=== PATIENT | male | born 1980 | race Caucasian/White ===

== ENCOUNTER 2017-02-23 14:57 | Emergency (ER) | payer OTHER, MEDICAID ==
[~2017-02-23] VITALS: Ht 182.9 cm; Wt 128.0 kg
[~2017-02-23 14:57] MED LIST: AMOX875T PO; DICY10 PO; METO10TA PO; NEXI20CA PO; PHEN12.5 PR; PROM25SU8 PO; SUCR1TAB PO
[2017-02-23 15:18] VITALS: BP 164/100; PULSE 92; RESP 17; TEMP 97.8; O2SAT 97
--- NOTE | 2017-02-23 15:22 | PD ---
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 He states he ate lunch and then went to the restroom. When he came out of the restroom he became dizzy and passed out. He did not strike his head. He was awake and alert when [facility] arrived. He denies any focal deficits or weakness. No nausea or vomiting. No chest pain or tightness. No recent illnesses, fever, or chills. He has no other symptoms to report. PFSH Past Medical History Arthritis: Yes Asthma: No Blood Disorders: No Heart Rhythm Problems: No Cancer: No Cardiac Catheterization: No Cardiovascular Problems: Yes High Cholesterol: No Chest Pain: Yes Congestive Heart Failure: No COPD: No Cerebrovascular Accident: Yes (COCAINE INDUCED - HAS SOME RESIDUAL TWITCHING AT TIMES) Diabetes: No Diminished Hearing: No Endocrine: No Gastrointestinal Disorders: Yes GERD: Yes Genitourinary: No Headaches: No Hepatitis: No Hiatal Hernia: No Hypertension: No Immune Disorder: No Musculoskeletal: Yes Neurologic: Yes Psychiatric: Yes (panic attacks) Reproductive: No Respiratory: No Migraines: No Myocardial Infarction: No Seizures: No Sleep Apnea: No Ulcer: No Past Surgical History Abdominal Surgery: No AICD: No Appendectomy: No Arteriovenous Shunt: No Cardiac Surgery: No Cholecystectomy: No Coronary Artery Bypass Graft: No Ear Surgery: No Endocrine Surgery: No Eye Surgery: No Genitourinary Surgery: No Gynecologic Surgery: No Insulin Pump: No Joint Replacement: No Oral Surgery: No Pacemaker: No Thoracic Surgery: No Other Surgery: Yes (CYST REMOVED FROM L-SIDE OF FACE) Social History Alcohol Use: Yes (2-6 DRINKS DAILY) Tobacco Use: No (quit) Substance Use: No (just prescribed) Allergies-Medications (Allergen,Severity, Reaction): Coded Allergies: Cipro (Verified Allergy, Intermediate, hives, 02/23/17) Reported Meds & Prescriptions Reported Meds & Active Scripts Active Reported Protonix (Pantoprazole Sodium) 40 Mg Tab 40 Mg PO DAILY Zantac (Ranitidine HCl) 300 Mg Tab 300 Mg PO BID Review of Systems Except as stated in HPI: all other systems reviewed are Neg Physical Exam Narrative GENERAL: Well nourished male patient, in no acute distress. SKIN: Warm and dry. HEAD: Atraumatic. Normocephalic. EYES: Pupils equal and round. No scleral icterus. No injection or drainage. ENT: No nasal bleeding or discharge. Mucous membranes pink and moist. NECK: Trachea midline. No JVD. CARDIOVASCULAR: Regular rate and rhythm. RESPIRATORY: No accessory muscle use. Clear to auscultation. Breath sounds equal bilaterally. GASTROINTESTINAL: Abdomen soft, nondistended. Right upper quadrant tenderness to palpation.. Hepatic and splenic margins not palpable. MUSCULOSKELETAL: Extremities without clubbing, cyanosis, or edema. No obvious deformities. NEUROLOGICAL: Awake and alert. No obvious cranial nerve deficits. Motor grossly within normal limits. Five out of 5 muscle strength in the arms and legs. Normal speech. Data Data Last Documented VS Vital Signs Date Time Temp Pulse Resp B/P Pulse Ox O2 Delivery O2 Flow Rate FiO2 02/23/17 18:57 85 18 142/85 100 02/23/17 16:30 Room Air 02/23/17 15:18 97.8 Orders Electrocardiogram (02/23/17 15:25) Basic Metabolic Panel (Bmp) (02/23/17 15:25) Complete Blood Count With Diff (02/23/17 15:25) Urinalysis - C+S If Indicated (02/23/17 15:25) Chest, Single Ap (02/23/17 15:25) Ecg Monitoring (02/23/17 15:25) Iv Access Insert/Monitor (02/23/17 15:25) Oximetry (02/23/17 15:25) Sodium Chloride 0.9% Flush (Ns Flush) (02/23/17 15:30) Sodium Chlor 0.9% 1000 Ml Inj (Ns 1000 M (02/23/17 15:25) Orthostatic Vital Signs (02/23/17 17:19) Us Abdomen Gallbladder (02/23/17 ) Lipase (02/23/17 17:19) Labs Laboratory Tests Test 02/23/17 02/23/17 13:15 15:30 Urine Color YELLOW Urine Turbidity CLEAR Urine pH 5.0 Urine Specific [place] 1.022 Urine Protein NEG mg/dL Urine Glucose (UA) NEG mg/dL Urine Ketones TRACE mg/dL Urine Occult Blood NEG Urine Nitrite NEG Urine Bilirubin NEG Urine Urobilinogen LESS THAN 2.0 MG/DL Urine Leukocyte Esterase NEG Urine RBC 1 /hpf Urine WBC 1 /hpf Urine Uric Acid Crystals OCC /hpf Urine Hyaline Casts 1 /lpf Urine Mucus FEW /lpf Microscopic Urinalysis Comment CULT NOT INDICATED White Blood Count 9.8 TH/MM3 Red Blood Count 5.06 MIL/MM3 Hemoglobin 15.3 GM/DL Hematocrit 44.7 % Mean Corpuscular Volume 88.4 FL Mean Corpuscular Hemoglobin 30.3 PG Mean Corpuscular Hemoglobin 34.3 % Concent Red Cell Distribution Width 12.9 % Platelet Count 193 TH/MM3 Mean Platelet Volume 10.3 FL Neutrophils (%) (Auto) 70.9 % Lymphocytes (%) (Auto) 21.3 % Monocytes (%) (Auto) 4.6 % Eosinophils (%) (Auto) 2.1 % Basophils (%) (Auto) 1.1 % Neutrophils # (Auto) 7.0 TH/MM3 Lymphocytes # (Auto) 2.1 TH/MM3 Monocytes # (Auto) 0.5 TH/MM3 Eosinophils # (Auto) 0.2 TH/MM3 Basophils # (Auto) 0.1 TH/MM3 CBC Comment DIFF FINAL Differential Comment Sodium Level 143 MEQ/L Potassium Level 3.5 MEQ/L Chloride Level 109 MEQ/L Carbon Dioxide Level 23.2 MEQ/L Anion Gap 11 MEQ/L Blood Urea Nitrogen 16 MG/DL Creatinine 1.07 MG/DL Estimat Glomerular Filtration 78 ML/MIN Rate Random Glucose 102 MG/DL Calcium Level 9.2 MG/DL Lipase 146 U/L [facility] Medical Decision Making Medical Screen Exam Complete: Yes Emergency Medical Condition: Yes Medical Record Reviewed: Yes Differential Diagnosis syncope versus near syncope versus electrolyte abnormality versus dehydration versus heat exhaustion versus orthostatic hypotension Narrative Course 36 year old male presents to the ED for evaluation of syncopal episode. Pt is AX0 x3 with no focal deficits or weakness. Vital signs are stable. Laboratory Tests Test 02/23/17 02/23/17 13:15 15:30 Urine Color YELLOW Urine Turbidity CLEAR Urine pH 5.0 Urine Specific [place] 1.022 Urine Protein NEG mg/dL Urine Glucose (UA) NEG mg/dL Urine Ketones TRACE mg/dL Urine Occult Blood NEG Urine Nitrite NEG Urine Bilirubin NEG Urine Urobilinogen LESS THAN 2.0 MG/DL Urine Leukocyte Esterase NEG Urine RBC 1 /hpf Urine WBC 1 /hpf Urine Uric Acid Crystals OCC /hpf Urine Hyaline Casts 1 /lpf Urine Mucus FEW /lpf Microscopic Urinalysis Comment CULT NOT INDICATED White Blood Count 9.8 TH/MM3 Red Blood Count 5.06 MIL/MM3 Hemoglobin 15.3 GM/DL Hematocrit 44.7 % Mean Corpuscular Volume 88.4 FL Mean Corpuscular Hemoglobin 30.3 PG Mean Corpuscular Hemoglobin 34.3 % Concent Red Cell Distribution Width 12.9 % Platelet Count 193 TH/MM3 Mean Platelet Volume 10.3 FL Neutrophils (%) (Auto) 70.9 % Lymphocytes (%) (Auto) 21.3 % Monocytes (%) (Auto) 4.6 % Eosinophils (%) (Auto) 2.1 % Basophils (%) (Auto) 1.1 % Neutrophils # (Auto) 7.0 TH/MM3 Lymphocytes # (Auto) 2.1 TH/MM3 Monocytes # (Auto) 0.5 TH/MM3 Eosinophils # (Auto) 0.2 TH/MM3 Basophils # (Auto) 0.1 TH/MM3 CBC Comment DIFF FINAL Differential Comment Sodium Level 143 MEQ/L Potassium Level 3.5 MEQ/L Chloride Level 109 MEQ/L Carbon Dioxide Level 23.2 MEQ/L Anion Gap 11 MEQ/L Blood Urea Nitrogen 16 MG/DL Creatinine 1.07 MG/DL Estimat Glomerular Filtration 78 ML/MIN Rate Random Glucose 102 MG/DL Calcium Level 9.2 MG/DL Lipase 146 U/L Last Impressions Chest X-Ray 02/23/17 1525 Signed Impressions: Service Date/Time: Thursday, February 23, 2017 15:39 - CONCLUSION: No acute cardiopulmonary disease. Deonte Kwan MD Gall Bladder Ultrasound 02/23/17 0000 Signed Impressions: Service Date/Time: Thursday, February 23, 2017 17:41 - CONCLUSION: Diffuse fatty infiltration. The patient is tender over the gallbladder but there are no gallstones. Alec Archibald MD FACR I have discussed the patient with my attending physician; pt will be discharged to follow up with his primary care provider. Results are discussed with patient. He is agreeable to being discharged home. He will return with any acute worsening of symptoms Diagnosis Primary Impression: Syncope Qualified Code: R55 - Syncope, unspecified syncope type Additional Impression: Right upper quadrant abdominal pain Referrals: Primary Care Physician Patient Instructions: Abdominal Pain (ED), General Instructions, Syncope (ED) Additional Instructions: Maintain adequate oral hydration Follow-up the primary care provider Seek gastroenterology evaluation for right upper abdominal pain Return immediately with any acute worsening symptoms Med/Other Pt SpecificInfo: No Change to Meds Disposition: 01 DISCHARGE HOME Condition: Stable Cleo Cordova Feb 23, 2017 15:22
[2017-02-23 15:25] VITALS: RESP 17; O2SAT 98
[2017-02-23] MEDS ORDERED: SODIUM CHLOR 0.9% 1000 ML INJ 1,000 ML IV ONE (15:25)
[2017-02-23] MEDS ORDERED: ZANT300T PO (15:25)
[2017-02-23] MEDS ORDERED: ZANT150T2 PO (15:25)
[2017-02-23] MEDS ORDERED: PROT40TA PO (15:26)
[2017-02-23] MEDS ORDERED: SODIUM CHLORIDE 0.9% FLUSH 10 ML FLUSH IVF PRN (15:30)
[2017-02-23 15:45] LABS: BASOPHIL # 0.1 TH/MM3 (0-0.2); BASOPHIL % 1.1 % (0.0-2.0); EOSINOPHIL # 0.2 TH/MM3 (0-0.4); EOSINOPHIL % 2.1 % (0.0-4.0); HEMATOCRIT 44.7 % (39.0-51.0); HEMO FLAGS DIFF FINAL; LYMPH % 21.3 % (9.0-44.0); LYMPHOCYTE # 2.1 TH/MM3 (1.0-4.8); MEAN CELL VOLUME 88.4 FL (80.0-100.0); MEAN CORPUSCULAR HEMOGLOBIN 30.3 PG (27.0-34.0); MEAN CORPUSCULAR HGB CONC 34.3 % (32.0-36.0); MONO % 4.6 % (0.0-8.0); NEUT % 70.9 % (16.0-70.0); PLATELET COUNT 193 TH/MM3 (150-450); RED BLOOD COUNT 5.06 MIL/MM3 (4.50-5.90); RED CELL DISTRIBUTION WIDTH 12.9 % (11.6-17.2); WHITE BLOOD COUNT 9.8 TH/MM3 (4.0-11.0)
[2017-02-23 16:02] LABS: BICARBONATE 23.2 MEQ/L (21.0-32.0); POTASSIUM 3.5 MEQ/L (3.5-5.1)
--- NOTE | 2017-02-23 16:22 | RADRPT ---
EXAM DATE/TIME: 02/23/2017 15:39 [facility] COMPARISON: CHEST PA & LAT, December 05, 2013, 7:24. INDICATIONS : Syncope, dizzy, passed out at work. MEDICAL HISTORY : None. SURGICAL HISTORY : None. ENCOUNTER: Initial ACUITY: 1 day PAIN SCORE: 0/10 LOCATION: Bilateral chest FINDINGS: The lungs are clear without infiltrate, nodule, or mass. There is no appreciable pleural effusion fo r technique. Heart and mediastinum are unremarkable. CONCLUSION: No acute cardiopulmonary disease. Deonte Kwan MD on February 23, 2017 at 16:20 Board Certified Radiologist. This report was verified electronically.
[2017-02-23 16:30] VITALS: BP 148/83; PULSE 80; RESP 17; O2SAT 99
[2017-02-23 17:26] VITALS: BP_SYST 139; BP_SYST 142; BP_SYST 146; BP_DIAS 81; BP_DIAS 85; BP_DIAS 91; RESP 16; RESP 17
--- NOTE | 2017-02-23 18:34 | RADRPT ---
EXAM DATE/TIME: 02/23/2017 17:41 [facility] COMPARISON: No previous studies available for comparison. INDICATIONS : Right upper quadrant pain. MEDICAL HISTORY : Hypertension. Gastroesophageal reflux disease. Cerebrovascular accident. Diarrhea. Arthritis. Da kishor alcohol use. Tobacco use. SURGICAL HISTORY : Right knee surgery. ENCOUNTER: Initial ACUITY: 2 weeks PAIN SCORE: 8/10 LOCATION: Right upper quadrant MEASUREMENTS: LIVER: 18.3 cm length COMMON DUCT: Non-visualized RIGHT KIDNEY: 10.4 x 6.4 x 5.9 cm FINDINGS: LIVER: Diffuse fatty infiltration without duct dilatation. COMMON DUCT: No intraluminal mass or stone visualized. GALLBLADDER: Contains no stones, demonstrates no wall thickening or pericholecystic fluid. The patient is tender over the gallbladder without gallstones. PANCREAS: The visualized portions are within normal limits. RIGHT KIDNEY: No evidence of hydronephrosis, stone, or mass. CONCLUSION: Diffuse fatty infiltration. The patient is tender over the gallbladder but there are no gallstones. Alec Archibald MD FACR on February 23, 2017 at 18:31 Board Certified Radiologist. This report was verified electronically.
[2017-02-23 18:45] LABS: BLOOD, URINE NEG (NEG); COMMENT (UR) CULT NOT INDICATED; CULTURE IF INDICATED CULT NOT INDICATED; GLUCOSE,URINE NEG (NEG); HYALINE CAST, URINE 1 /lpf (RARE); KETONE, URINE TRACE mg/dL (NEG); MUCUS URINE FEW /lpf (OCC); NITRITE,URINE NEG (NEG); URIC ACID CRYSTALS, URINE OCC /hpf; URINE COLOR YELLOW (YELLW/STRAW)
[2017-02-23 18:57] VITALS: BP 142/85
--- NOTE | 2017-02-24 09:53 | EKG ---
Date Performed: 02/23/2017 Time Performed: 15:24:36 PTAGE: 36 years EKG: Sinus rhythm BORDERLINE LEFT AXIS DEVIATION POSSIBLE RIGHT VENTRICULAR CONDUCTION DELAY VOLTAGE CRITERIA FOR LVH ABNORMAL ECG Compared to prior tracing no significant change PREVIOUS TRACING : 12/05/2013 10.48 DOCTOR: Aniket Castillo Interpretating Date/Time 02/24/2017 09:49:31
== END 2017-02-23 18:59 | disposition home or self-care (01) ==
LOC: NEPC 14:57
DX: R55 Syncope and collapse (principal); R42 Dizziness and giddiness; R10.11 Right upper quadrant pain; R94.31 Abnormal electrocardiogram [ECG] [EKG]; K21.9 Gastro-esophageal reflux disease without esophagitis; M13.80 Other specified arthritis, unspecified site; Z86.73 Personal history of transient ischemic attack (TIA), and cerebral infarction without residual deficits
CPT/HCPCS: 71010; 76705; 80048; 81001; 83690; 85025; 93005; 96360; 99285; J7030